=== PATIENT | male | born 1950 | race Caucasian/White ===

== ENCOUNTER → 2017-12-07 | Outpatient (CLI) | payer MEDICARE ==
[~2017-12-07] MED LIST: AMLO5 PO; ASPI81EC PO; ATOR40TA PO; CYCL10 PO; Crestor PO; Diovan PO; FURO40 PO; Glucophage PO; INVOKANA300 MG PO; ITRA100 PO; MAGCHL64ER PO; METF500 PO; MONT10T PO; MULVITA PO; Norco 5-325 Ta1 EACH PO; OXYACE5T PO; PIOG30 PO; Robaxin500 MG PO; VALS80 PO
== END | disposition home or self-care (01) ==
LOC: LAB SHORT 14:59 → PLD 14:59
DX: D48.5 Neoplasm of uncertain behavior of skin (principal)
CPT/HCPCS: 88305

== ENCOUNTER → 2020-01-23 | Outpatient (CLI) | payer OTHER ==
[~2020-01-23] MED LIST changes: +ASPI325; +JARDIANCE25 MG; +LOSARTAN POTAS100 MG; +MAGNESIUM CITR100 MG PO
== END | disposition home or self-care (01) ==
LOC: PLD 07:40 → LAB SHORT 07:40
DX: L81.4 Other melanin hyperpigmentation (principal)
CPT/HCPCS: 88305

== ENCOUNTER → 2022-11-12 | Outpatient (CLI) | payer OTHER | LOC: LAB 08:05 → LAB SHORT 08:05 | DX: C34.91 Malignant neoplasm of unspecified part of right bronchus or lung (principal) | CPT/HCPCS: 87070; 87205 ==

== ENCOUNTER → 2022-11-21 | Outpatient (CLI) | payer OTHER ==
[2022-11-21 13:30] LABS: BASOPHILS ABSOLUTE AUTO 0.02 K/mm3 (0.00-0.23); BASOPHILS PERCENT AUTO 0 % (0-2); EOSINOPHILS ABSOLUTE AUTO 0.02 K/mm3 (0.00-0.68); EOSINOPHILS PERCENT AUTO 0 % (0-6); Hematocrit 44.2 % (37.0-53.0); Hemoglobin 15.3 g/dL (13.5-17.5); IMMATURE GRAN ABSOLUTE AUTO 0.05 K/mm3 (0.00-0.10); IMMATURE GRAN PERCENT AUTO 1 % (0-1); LYMPHOCYTES PERCENT AUTO 6 % (21-46); MONOCYTES ABSOLUTE AUTO 1.28 K/mm3 (0.16-1.47); MONOCYTES PERCENT AUTO 15 % (4-13); Mean Corpuscular HGB 31.8 pg (26.0-34.0); Mean Corpuscular HGB Conc 34.6 g/dL (31.5-36.5); Mean Corpuscular Volume 92 fL (80-100); Mean Platelet Volume 9.1 fL (9.1-12.4); NEUTROPHILS PERCENT AUTO 78 % (41-73); Platelet Count 169 K/mm3 (150-400); RDW Coefficient Variation 13.1 % (11.7-14.2); RDW Standard Deviation 44.3 fL (35.1-46.3); Red Blood Cell Count 4.81 M/mm3 (4.30-5.90); White Blood Cell Count 8.37 K/mm3 (4.00-11.30)
[2022-11-21 13:37] LABS: Bun/Creatinine Ratio 15.3 (12.0-20.0); Calcium, Blood 9.2 mg/dL (8.5-10.1); Creatinine, Blood 1.11 mg/dL (0.60-1.20); Potassium, Blood 4.3 mmol/L (3.5-5.5)
== END | disposition home or self-care (01) ==
LOC: LAB 13:23 → LAB SHORT 13:23
PROVIDERS: Physician Assistant Surgical
DX: R07.81 Pleurodynia (principal)
CPT/HCPCS: 80048; 83880; 84484; 85025

== ENCOUNTER → 2024-12-10 | Outpatient (CLI) | payer OTHER | LOC: LAB SHORT 12:25 → LAB 12:25 | DX: J02.9 Acute pharyngitis, unspecified (principal) | CPT/HCPCS: 87081 ==

== ENCOUNTER 2025-01-01 22:34 | Emergency (ER) | payer OTHER ==
[~2025-01-01] VITALS: Ht 180.3 cm; Wt 111.1 kg
[2025-01-01 22:47] VITALS: BP 156/73
[2025-01-01] MEDS ORDERED: Silver Sulfadiazine 1% Cream 25 APPLIC/25 GM Tube TOP ONE (23:40)
== END 2025-01-02 00:55 | disposition home or self-care (01) ==
LOC: ER 22:34
DX: T25.012A Burn of unspecified degree of left ankle, initial encounter (principal)
CPT/HCPCS: 16020; 99282-25; A9270